=== PATIENT | female | born 1985 | race Caucasian/White ===

== ENCOUNTER 2025-05-18 08:53 | Outpatient (REF) | payer MEDICAID, SELFPAY ==
--- OUTSIDE RECORDS SUMMARY | 2025-05-18 09:43 | XMS_ITS | Clinical Summary ---
Author Organization [employer] Address [address] [place] [address] [address] [place] [address] Care Team Providers Care Quantitative Analyst Marketing Name Role Phone Ira Lane NOEL Primary Care Provider [phone] Allergies No known active allergies Medications MV-Min-Fe Fum-FA-DHA ( 1 PO) Take 1 each by mouth Once per day. Active Active Problems Problem Noted Date Diagnosed Date History of pre-eclampsia 05/06/2025 Assessment & Plan (05/06/2025 5:25 PM EDT): - Occurred with 2nd when she was admitted to L&D floor. Resolved within a few days after delivery. Headache 05/06/2025 Assessment & Plan (05/06/2025 5:16 PM EDT): 3-4 times per month, relieved with Excedrin Encouraged sleep hygiene as much as possible, good hydration, and nutrition intake F/up precautions reviewed Healthcare maintenance 05/06/2025 Overview (05/06/2025): Pap: encouraged to schedule. Mammogram: ordered 05/04/25 for her to complete on or after 40 y/o Colonoscopy: routine screening beginning at 45 y/o Assessment & Plan (05/06/2025 5:21 PM EDT): Routine lab work including asymptomatic STI screening ordered today Resolved Problems Problem Noted Date Diagnosed Date Resolved Date Anemia affecting in third trimester 03/01/20 24 05/06/2025 Overview (05/03/2025): 03/01/24 Hgb 11.0 ferritin 6-->Prescription for iron daily/iron rich diet reviewed improved Lab Results Component Value Date WBC 7.2 05/03/2024 RBC 4.30 05/03/2024 HGB 11.6 05/03/2024 HCT 36.3 05/03/2024 MCV 84.4 05/03/2024 MCHC 32.0 05/03/2024 RDW 16.5 (H) 05/03/2024 PLT 245 05/03/2024 MPV 11.0 05/03/2024 Irregular menstrual cycle 08/03/2023 Overview (05/03/2025): Impression - [id number]: Check CBC and TSH. ; Referral sent to [facility]IVING [facility]. Encounters Date Type Department Care Team Description 05/04/2025 9:00 AM EDT Office Visit [facility] [address] [place] [address] FNP Nonintractable headache, unspecified chronicity pattern, unspecified headache type (Primary Dx); Dietary counseling; Exercise counseling; Screening mammogram for breast cancer; Healthcare maintenance; History of pre-eclampsia 05/04/2025 Travel 05/03/2025 Telephone [facility] [address] [place] [address] FNP chart prep 05/01/2025 Travel 04/26/2025 Patient Outreach [facility] [address], [place] [id number] Rhianna Doss Pre-visit Planning (SDOH screening negative and Tobacco screening negative) from Last 3 Months Immunizations Immunization Administration Dates Next Due Tdap 03/01/2024 Family History Medical History Relation Name Comments Hypertension Father Sudhir Breast cancer Maternal Grandmother Vilma Stroke Maternal Grandmother Vilma Diabetes Mother Dominga Miscarriages / Stillbirths Mother Dominga Relation Name Status Comments Father Sudhir Alive Maternal Grandmother Vilma Mother Dominga Alive Social History Tobacco Use Types Packs/Day Years Used Date Smoking Tobacco: Never Smokeless Tobacco: Never Tobacco Cessation:Counseling Given: Not Answered Alcohol Use Standard Drinks/Week Comments Never 0 (1 standard drink = 0.6 oz pur e alcohol) Depression Answer Date Recorded Patient Health Questionnaire-9 Score 1 05/04/2025 Patient Health Questionnaire-9 Score 1 05/04/2025 Last PHQ-9: Questionnaire Data Not on file 0 05/04/2025 Housing Stability Answer Date Recorded What is your housing situation today? I have jd navarrete 04/26/[address] you li ve. Do you have problems with any of the following? None of the above 04/26/2025 Food Insecurity Answer Date Recorded Within the past 12 months, y ou worried that your food would run out before you got money to buy more: Never True 04/26/2025 Within the past 12 months,th e food you bought just didn't last and you didn't have enough money to get more: Never True Transportation Answer Date Recorded In the past 12 months, has l ack of transportation kept you from medical appts, meetings, work or from getting things needed for daily living? No 04/26/2025 Utilities Answer Date Recorded In the past 12 months, has t he electric, gas, oil or water company threatened to shut off services in your home? No 04/26/2025 Depression Answer Date Recorded Patient Health Questionnaire-2 Score 0 05/04/2025 Internet Access Answer Date Recorded Internet Access Q1 Yes 04/26/2025 Internet Access Q2 Not on file 04/26/2025 Comments No Intention Date Recorded No desire to become (finding) 0 05/04/2025 Sex and Gender Information Value Date Recorded Sex Assigned at Female 05/03/2025 11:40 AM EDT Legal Sex Female 11:46 AM EDT Gender Identity Female 05/03/2025 11:40 AM EDT Sexual Orientation Don't know 05/03/2025 11 :40 AM EDT Last Filed Vital Signs Vital Sign Reading Time Taken Comments Blood Pressure 112/78 05/04/2025 9:12 AM EDT Pulse 88 05/04/2025 9:12 AM EDT Temperature 36.7 C (98 F) 05/04/2025 9:12 AM EDT Respiratory Rate 20 05/04/2025 9:12 AM EDT Oxygen Saturation - - Inhaled Oxygen Concentration - - Weight 83 kg (183 lb) 05/04/2025 9:12 AM EDT Height 149.9 cm (4' 11 ) 05/04/2025 9:12 AM EDT Body Mass Index 36.96 05/04/2025 9:12 AM EDT Plan of Treatment Health Maintenance Due Date Last Done Comments Lipid Panel 1985 HPV Vaccines (1 - 3-dose series) 2000 Hepatitis C Screening 2003 Hepatitis B Vaccines (1 of 3 - 19+ 3-dose series) 2004 Pap Smear 2006 Cervical Cancer Screening 2015 HPV/Cotest 2015 COVID-19 Vaccine (1 - 2023-2 5 season) 2025 Influenza Vaccine (#1) 2025 SDOH Screening 04/26/2026 04/26/2025 Disability Screening 05/01/2026 05/01/2025 Alcohol/Substance Use Screening 05/04/2026 05/04/2025 Depression Screening 05/04/2026 05/04/2025, 05/04/2025 Tobacco Screening 05/04/2026 05/04/2025 Family Planning (PISQ) 05/06/2026 05/06/2025 DTaP/Tdap/Td Vaccines (2 - T d or Tdap) 03/01/2034 03/01/2024 Zoster Vaccines (1 of 2) 2035 RSV Patients and Patients Aged 60 years or older (1 - 1-dose 75+ series) 2060 HIV Screening Completed 11/22/2023 HIB Vaccines Aged Out No longer eligi ble based on patient's age to complete this topic Hepatitis A Vaccines Aged Out No long er eligible based on patient's age to complete this topic IPV Vaccines Aged Out No longer eligi ble based on patient's age to complete this topic Meningococcal B Vaccine Aged Out No l onger eligible based on patient's age to complete this topic Meningococcal Vaccine Aged Out No cortes venkat eligible based on patient's age to complete this topic Pneumococcal Vaccine: Pediatrics (0 to 5 Years) and At-Risk Patients (6 to 49) Years Aged Out No longer eligible b ased on patient's age to complete this topic RSV under 20 months Aged Out No longe r eligible based on patient's age to complete this topic Rotavirus Vaccines Aged Out No longer eligible based on patient's age to complete this topic Insurance [facility] C3 Care Teams Quantitative Analyst Marketing Relationship Specialty Start Date End Date Ira Lane FNP [address] [place] [id number] PCP - General Family Medicine 05/04/25
[2025-05-18 14:36] LABS: MANUAL DIFF FLAG NO
[2025-05-18 14:52] LABS: Hematocrit 38.8 % (37.0-47.0); Hemoglobin 12.8 g/dl (12.0-16.0); Imm Gran Abs Auto 0.02 X10*3/uL (0.00-0.03); Imm Gran Pct Auto 0.3 % (0.0-0.4); Lymphocytes Absolute Auto 2.1 X10*3/uL (1.2-4.9); Mean Corpuscular HGB Conc 33.0 g/dl (31.0-35.0); Mean Corpuscular Hemoglobin 27.8 pg (27.0-33.0); Mean Corpuscular Volume 84.3 fL (80.0-98.0); NRBC Abs Auto 0.000 X10*3/uL (0.0-0.012); NRBC Pct Auto 0.0 /100WBC (0.0-0.2); Platelet Count 284 X10*3/uL (160-400); Red Blood Count 4.60 X10*6/uL (4.20-5.50); White Blood Count 5.9 X10*3/uL (4.8-10.8)
[2025-05-18 15:00] LABS: Hemoglobin A1C 127.8183 umol/L; Total Hemoglobin (HGBA1C) 3420.6258 umol/L
[2025-05-18 15:01] LABS: Alanine Aminotransferase 23 U/L (0-31); Albumin Level 4.5 g/dL (3.5-5.0); Alkaline Phosphatase 91 U/L (39-117); Anion Gap 10 (12-20); Aspartate Amino Transferase 28 U/L (5-31); Blood Urea Nitrogen 13 mg/dL (9-16); Calcium 8.8 mg/dL (8.4-10.2); Carbon Dioxide 28 mmol/L (22-29); Chloride 107 mmol/L (96-108); Cholesterol 210 mg/dL (<200); Estimated Glomerular Filt Rate > 60; HDL Cholesterol 41 mg/dL (>40); Potassium 3.8 mmol/L (3.3-5.1); Sodium 141 mmol/L (135-145); Total Protein 7.5 g/dL (6.5-8.0); Triglycerides 172 mg/dL (<150)
[2025-05-19 09:02] LABS: HIV Num 1 0.06 S/CO (0.00-0.99)
[2025-05-19 18:09] LABS: HCV Log PCR <1.18 NOT DETECTED Log IU/mL (NOT DETECTED); HepC Viral Load <15 NOT DETECTED IU/mL (NOT DETECTED)
== END 2025-05-18 08:54 | disposition home or self-care (01) ==
LOC: HO.CHCLDS 08:53
PROVIDERS: Visit Provider Registered Nurse
DX: Z00.00 Encounter for general adult medical examination without abnormal findings (principal); Z11.3 Encounter for screening for infections with a predominantly sexual mode of transmission; Z11.4 Encounter for screening for human immunodeficiency virus [HIV]; Z11.59 Encounter for screening for other viral diseases
CPT/HCPCS: 36415; 80053; 80061; 83036; 84443; 85025; 86592; 87389; 87522